=== PATIENT | female | born 1960 | race Caucasian/White ===

== ENCOUNTER 2017-01-31 08:47 | Outpatient (CLI) | payer OTHER ==
[2017-02-09] MEDS ORDERED: DIAZEPAM5 MG PO (13:29)
[2017-02-09] MEDS ORDERED: VICODIN EQUIVAL1 TAB PO (13:30)
[2017-02-09] MEDS ORDERED: FLECTOR1.3 % (13:30)
[2017-02-13] MEDS ORDERED: PROCTOFOAM HC PR (11:03)
== END 2017-01-31 23:00 ==
LOC: LAB SRH 08:47
DX: R19.7 Diarrhea, unspecified (principal)
CPT/HCPCS: 90112; 90124; 90455; 99784